=== PATIENT | male | born 1955 | race Caucasian/White ===

== ENCOUNTER 2016-09-06 08:11 | Outpatient (CLI) | payer OTHER | END 2016-09-06 08:12 | disposition home or self-care (01) | DX: I10 Essential (primary) hypertension (principal); E78.2 Mixed hyperlipidemia; E55.9 Vitamin D deficiency, unspecified; Z79.899 Other long term (current) drug therapy; R73.09 Other abnormal glucose ==

== ENCOUNTER 2018-03-24 18:40 | Emergency (ER) | payer OTHER ==
[2018-03-24] MEDS ORDERED: PROPARACAINE 0.5% OPHTH DROPS 15 ML RIGHTEYE STA (19:42)
[2018-03-24] MEDS ORDERED: ERYTHROMYCIN OPHTH OINT 1 GM TUBE RIGHTEYE STA (19:52)
--- NOTE | 2018-03-24 19:52 | ED Physician Documentation ---
PD HPI OPHTHO - Stated complaint Stated Complaint: R EYE PX - Chief complaint Chief Complaint: Heent - History obtained from History obtained from: Patient - History of Present Illness Timing - onset: Other (Yesterday morning he rolled over and contacted his dog's paw with his right eye. He has persistent blurry and pain although no visual deficit per se. He does not wear contacts.) Review of Systems Constitutional: reports: Reviewed and negative Eyes: reports: Discharge, Irritation. denies: Loss of vision, Decreased vision, Photophobia Ears: reports: Reviewed and negative PD PAST MEDICAL HISTORY - Past Surgical History Past Surgical History: Yes General: Other - Present Medications Home Medications: Ambulatory Orders Medication Instructions Recorded Confirmed Cholecalciferol (Vitamin D3) 03/24/18 [Vitamin D3] Erythromycin Base [Erythromycin 1 appful OP 5XD 7 Days #1 oint...g. 03/24/18 Ophthalmic Ointment] Gabapentin 100 mg PO DAILY 03/24/18 03/24/18 Lisinopril 20 mg PO BID 03/24/18 03/24/18 Rosuvastatin Calcium 20 mg PO DAILY 03/24/18 03/24/18 - Allergies Allergies/Adverse Reactions: Allergies Allergy/AdvReac Type Severity Reaction Status Date / Time No Known Drug Allergies Allergy Verified 03/24/18 18:49 - Social History Does the pt smoke?: No Smoking Status: Never smoker Does the pt drink ETOH?: Yes Does the pt have substance abuse?: No - Immunizations Immunizations are current?: Yes - POLST Patient has POLST: No PD ED PE NORMAL - Vitals Vital signs reviewed: Yes - General General: Alert and oriented X 3, No acute distress - HEENT HEENT: PERRL, EOMI, Other (On fluorescein examination there is a tiny corneal abrasion inferior midline on the right eye. Negative Walter sign.) - Neck Neck: Supple, no meningeal sign, No bony TTP - Neuro Neuro: Alert and oriented X 3, Normal speech Results - Vitals Vitals: Vital Signs - 24 hr 03/24/18 18:46 Temperature 36.7 C Heart Rate 55 L Respiratory 16 Rate Blood Pressure 155/85 H O2 Saturation 97 Oxygen O2 Source Room air Departure - Departure Disposition: 01 Home, Self Care Clinical Impression: Corneal abrasion Qualifiers: Encounter type: initial encounter Laterality: right Qualified Code(s): S05.01XA - Injury of conjunctiva and corneal abrasion without foreign body, right eye, initial encounter Condition: Good Record reviewed to determine appropriate education?: Yes Instructions: ED Eye Injury Corneal Abrasion Prescriptions: Erythromycin Base [Erythromycin Ophthalmic Ointment] 1 appful OP 5XD 7 Days #1 oint...g.
[2018-03-24 20:06] VITALS: BP 162/97
== END 2018-03-24 20:10 | disposition home or self-care (01) ==
LOC: ED 18:40
DX: S05.01XA Injury of conjunctiva and corneal abrasion without foreign body, right eye, initial encounter (principal); W54.8XXA Other contact with dog, initial encounter; Y92.9 Unspecified place or not applicable; Y93.9 Activity, unspecified
CPT/HCPCS: 99283; J3490

== ENCOUNTER 2020-04-16 08:00 | Day surgery (SDC) | payer OTHER ==
[2020-04-16] MEDS ORDERED: LACTATED RINGERS 1,000 ML IV ONE ×2 (08:15→10:06)
[2020-04-16] MEDS ORDERED: MIDAZOLAM 2 MG/2 ML VIAL ONE ×2 (09:21→09:51)
[2020-04-16] MEDS ORDERED: fentaNYL 250 MCG/5 ML VIAL ONE (09:21)
[2020-04-16 10:22] VITALS: BP 119/78
== END 2020-04-16 08:01 | disposition home or self-care (01) ==
LOC: SDS 08:00
PROVIDERS: ATTEND Surgery
DX: Z12.11 Encounter for screening for malignant neoplasm of colon (principal); K64.8 Other hemorrhoids; Z80.0 Family history of malignant neoplasm of digestive organs; Z87.891 Personal history of nicotine dependence
CPT/HCPCS: 45378; J3010; J7120

== ENCOUNTER 2022-06-01 10:50 | Outpatient (CLI) | payer OTHER ==
[2022-06-01 12:16] LABS: CALCIUM 9.6 mg/dL (8.5-10.3); CREATININE 0.7 mg/dL (0.6-1.2); POTASSIUM 4.3 mmol/L (3.5-5.0)
== END 2022-06-01 23:59 | disposition home or self-care (01) ==
LOC: LAB.N 10:50
PROVIDERS: ATTEND Physician Assistant
DX: I10 Essential (primary) hypertension (principal)
CPT/HCPCS: 36415; 80048

== ENCOUNTER 2023-02-10 07:07 | Outpatient (CLI) | payer OTHER ==
--- NOTE | 2023-02-10 12:50 | XRAY Report ---
PROCEDURE: Cervical Spine 2 View INDICATIONS: NECK PAIN TECHNIQUE: 4 view(s) of the cervical spine were acquired. COMPARISON: None. FINDINGS: Bones: No fractures or dislocations to the C6 level. The lateral masses of C1 appear intact on the odontoid view. No suspicious bony lesions. Moderate disc height loss at C6-7 and C5-6. Mild disc he ight loss at remaining levels. Diffuse facet arthrosis, most prominent at C4-5, C5-6. Soft tissues: No prevertebral soft tissue swelling. IMPRESSION: Mild to moderate, multilevel degenerative disc disease and facet arthrosis. Reviewed by: Wilfredo Arreola on 02/10/2023 12:49 PM PDT Approved by: Wilfredo Arreola on 02/10/2023 12:49 PM PDT Station ID: [id number]
== END 2023-02-10 07:08 | disposition home or self-care (01) ==
LOC: DI.S 07:07
PROVIDERS: ATTEND Nurse Practitioner Family
DX: M47.812 Spondylosis without myelopathy or radiculopathy, cervical region (principal); M50.31 Other cervical disc degeneration, high cervical region